=== PATIENT | female | born 1980 | race Caucasian/White ===

== ENCOUNTER 2022-02-02 05:56 | Emergency (ER) | payer OTHER ==
[2022-02-02 06:42] LABS: BASOPHIL 0.3 % (0-2); EOSINOPHIL 1.2 % (0-5); HCT 43.8 % (37.0-47.0); HGB 14.6 g/dl (12.5-16.0); MCH 29.8 pg (25.0-31.0); MCHC 33.3 g/dL (32.0-36.0); MCV 89.4 fL (78.0-100.0); MONOCYTE 6.9 % (0-12); MPV 9.7 fL (6.0-9.5); NEUTROPHIL 67.1 % (41-80); NRBC 0; PLT 286 K/uL (150-400); RDW 14.5 % (11.5-14.0); WBC 15.3 K/uL (4.0-10.5)
[2022-02-02 07:02] LABS: BILIRUBIN NEGATIVE (NEGATIVE); BLOOD 2+ Ery/uL (NEGATIVE); CLARITY CLEAR (CLEAR); COLOR YELLOW (YELLOW); GLUCOSE (U) NORMAL (NORMAL); LEUKOCYTES NEGATIVE Leu/uL (NEGATIVE); NITRITE NEGATIVE (NEGATIVE); PROTEIN TRACE (LOW) mg/dL (NEGATIVE); SPECIFIC GRAVITY >=1.030 (1.001-1.030); UROBILINOGEN 0.2 mg/dL (0.2-1.0)
[2022-02-02 07:07] LABS: ALBUMIN 3.5 g/dL (3.4-5.0); BILIRUBIN - TOTAL 0.3 mg/dL (0.2-1.0); BUN/CREAT RATIO (CALC) 12.7 RATIO; CREATININE 0.79 mg/dL (0.51-0.95); POTASSIUM 3.6 mmol/L (3.5-5.1); TOTAL PROTEIN 7.5 g/dL (6.4-8.2)
[2022-02-02 07:12] LABS: BACTERIA TRACE; MUCOUS MODERATE; SQUAMOUS EPITHELIAL CELLS 20-50
[2022-02-02] MEDS ORDERED: ONDANSETRON ODT4 MG PO (09:02)
[2022-02-02] MEDS ORDERED: PEPCID AC20 MG PO (09:02)
== END 2022-02-02 09:42 | disposition home or self-care (01) ==
LOC: FER 05:56
PROVIDERS: Emergency Medicine
DX: R10.9 Unspecified abdominal pain (principal); R11.2 Nausea with vomiting, unspecified; F17.200 Nicotine dependence, unspecified, uncomplicated; Z28.310 Unvaccinated for COVID-19
CPT/HCPCS: 36415; 80053; 81001; 83690; 85025; J1885; J2405; J7030